=== PATIENT | female | born 1980 | race Caucasian/White ===

== ENCOUNTER → 2023-11-09 07:33 | Outpatient (REF) | payer OTHER, SELFPAY | LOC: HWRAD 07:33 | PROVIDERS: ATTENDING PHYSICIAN Internal Medicine Transplant Hepatology; FAMILY PHYSICIAN Internal Medicine | DX: R76.8 Other specified abnormal immunological findings in serum (principal) | CPT/HCPCS: 76700 ==

== ENCOUNTER → 2023-12-29 08:25 | Outpatient (REF) | payer OTHER, SELFPAY | LOC: HWWDC 08:25 | PROVIDERS: ATTENDING PHYSICIAN Internal Medicine | DX: Z12.31 Encounter for screening mammogram for malignant neoplasm of breast (principal) | CPT/HCPCS: 77063; 77067 ==

== ENCOUNTER 2024-08-18 21:07 | Observation (INO) | payer OTHER, SELFPAY ==
[2024-08-18] VITALS (12 sets, daily range): BP systolic 110–150; BP diastolic 73–95; BMI 25.4
[2024-08-18 11:02] LABS: % Basophils 1.3 % (0-2); % Eosinophils 1.5 % (0-6); % Immature Granulocytes 0.2 % (0-0.5); % Lymphocytes 39.2 % (20.5-51.1); % Monocytes 9.6 % (1.7-9.3); % Neutrophils 48.2 % (42.2-75.2); Absolute Basophils 0.1 10^3/uL (0-0.2); Absolute Eosinophils 0.1 10^3/uL (0-0.7); Absolute Lymphocytes 1.9 10^3/uL (1.2-3.4); Absolute Monocytes 0.5 10^3/uL (0.1-0.6); Absolute Neutrophils 2.3 10^3/uL (1.4-6.5); Hematocrit 40.4 % (37.0-47.0); Hemoglobin 14.1 g/dL (12.0-16.0); Mean Corp Hgb Conc. 34.9 g/dL (33.0-37.0); Mean Corpuscular Hgb 30.8 pg (27.0-31.0); Mean Corpuscular Volume 88.2 fL (81.0-99.0); Mean Platelet Volume 9.8 fL (7.4-10.4); Nucleated Red Blood Cells % 0 %; Platelet Count 229 10^3/uL (130-400); Red Blood Cell Count 4.58 10^6/uL (4.20-5.40); Red Cell Dist. Width 11.8 % (11.5-14.5); White Blood Cell Count 4.8 10^3/uL (4.8-10.8)
--- NOTE | 2024-08-18 11:09 | ED.GENMED ---
History of Present Illness
<Bran Dean, DO - Last Filed: 08/18/24 15:21>
General
Chief Complaint: Abdominal Pain
Source: patient, spouse and ambulance crew
Exam Limitations: none
Time Seen by Provider: 08/18/24 10:59
Nursing documentation reviewed up to this point in time: agreed with
History of Present Illness
History of Present Illness:
44-year-old female presents emergency department due to sudden onset right lower pain and vomiting. No aggravating relieving factors.
Past History
<Bran Dean, DO - Last Filed: 08/18/24 15:21>
Past History
ED Past Medical History: Other (anemia)
ED Past Surgical History: , Gynecological (Partial hysterectomy, tubal ligation), Tonsilectomy and Other (Facial reconstruction)
Social History
Tobacco: Non-smoker
Alcohol: None
Drug: None
Personal:
Living: with family
Review of Systems
<Bran Dean, DO - Last Filed: 08/18/24 15:21>
Review of Systems
Allergies reviewed?: Yes
All Other Systems: Not applicable
Constitutional: Reports no symptoms
EENT: Reports no symptoms
Respiratory: Reports no symptoms
Cardiac: Reports no symptoms
ABD/GI: Reports abdominal pain, nausea and vomiting
: Reports flank pain
Musculoskeletal: Reports no symptoms
Skin: Reports no symptoms
Neurological: Reports no symptoms
Endocrine: Reports no symptoms
Hematologic/Lymphatic: Reports no symptoms
Psychiatric: Reports no symptoms
Phy Exam
<Bran Dean, DO - Last Filed: 08/18/24 15:21>
Physical Exam
Physical Exam:
Physical Exam
General: Appears uncomfortable, afebrile
Neck: supple. no meningeal signs. normal posterior pharynx
Heart: s1/s2 regular rate and rhythm, no murmur. equal radial
pulses.
HEENT: Pupils equal round reactive to light, EOMI
Lungs: no acute respiratory distress. clear bilaterally
Abdomen: normal bowel sounds. not tender. no CVAT
Neuro: alert and oriented. no focal neurological deficits cranial nerves II through XII intact
Skin: no rash
Psychiatric: well kept. interactive and cooperative
Extremities: no edema. no calf tenderness. negative homans. good distal pulses
Course
<Bran Dean, DO - Last Filed: 08/18/24 15:21>
Orders/Labs/Results
Orders:
Orders
08/18/24 10:46
IV Insert/Care/Rem.- Treatment PRN
08/18/24 10:48
Complete Blood Count/With Diff Urgent
Comprehensive Metabolic Panel Urgent
Lipase Urgent
08/18/24 11:06
Ketorolac [Toradol] 15 mg IV NOW STA
Ondansetron Injectable [Zofran] 4 mg IV NOW STA
08/18/24 11:07
Lactated Ringers [Lr] 1,000 ml IV BOLUS
08/18/24 11:08
CT Abd/pel Without Iv Or Oral Urgent
Comment:
Reason For Exam: right flank pain
08/18/24 12:34
Ketorolac [Toradol] 15 mg .ROUTE .STK-MED ONE
Ketorolac [Toradol] 15 mg IV NOW STA
08/18/24 13:14
HYDROmorphone [Dilaudid] 0.5 mg IV NOW STA
08/18/24 13:20
Ondansetron Injectable [Zofran] 4 mg .ROUTE .STK-MED ONE
08/18/24 13:21
Ondansetron Injectable [Zofran] 4 mg IV NOW STA
08/18/24 13:28
Urinalysis Reflex To Culture Urgent
Date Specimen was Collected: 08/18/24
Time Specimen was Collected: 10:46
08/18/24 13:48
Ketorolac [Toradol] 15 mg IV NOW STA
08/18/24 13:53
US Pelvis W Transvag Combined Urgent
Comment:
Reason For Exam: right pelvic pain, prior partial hysterectomy
08/18/24 14:02
Lactated Ringers [Lr] 1,000 ml IV BOLUS
08/18/24 14:07
Metoclopramide [Reglan] 10 mg .ROUTE .STK-MED ONE
Morphine Sulfate 2 mg .ROUTE .STK-MED ONE
08/18/24 14:12
Metoclopramide [Reglan] 10 mg IV NOW STA
Morphine Sulfate 2 mg IV NOW STA
08/18/24 18:02
HYDROmorphone [Dilaudid] 0.5 mg IV NOW STA
08/18/24 20:45
Admit/Transfer Patient As Directed
Co-Sign Provider:
Level of Care: Observation services
Assign to:: Medical/Surgical
Physician / Group: htay
Diagnosis: Sudden onset of Rt Lower abdominal pain of uncertain origin
Reason for Hospitalization: Sudden onset of Rt Lower abdominal pain of uncertain origin
Reason for Overnight Stay: Other
Other Reason for Overnight Stay: Sudden onset of Rt Lower abdominal pain of uncertain origin
08/18/24 20:47
Code Status As Directed
Resuscitation Status: Full Code
Abnormal Lab Results
08/18/24
10:48
Monocytes % 9.6 H %
(1.7-9.3)
08/18/24 10:48
08/18/24 10:48
Vital Signs
Initial and Last Documented VS:
Initial Vital Signs
BP
128/95
08/18/24 10:48
Last Documented Vital Signs
Pulse Resp BP Pulse Ox
63 13 143/83 98
08/18/24 19:30 08/18/24 19:30 08/18/24 19:00 08/18/24 19:30
Burkelt;Ramon Alicia DO - Last Filed: 08/18/24 22:23>
Orders/Labs/Results
Orders:
Orders
08/18/24 10:46
IV Insert/Care/Rem.- Treatment PRN
08/18/24 10:48
Complete Blood Count/With Diff Urgent
Comprehensive Metabolic Panel Urgent
Lipase Urgent
08/18/24 11:06
Ketorolac [Toradol] 15 mg IV NOW STA
Ondansetron Injectable [Zofran] 4 mg IV NOW STA
08/18/24 11:07
Lactated Ringers [Lr] 1,000 ml IV BOLUS
08/18/24 11:08
CT Abd/pel Without Iv Or Oral Urgent
Comment:
Reason For Exam: right flank pain
08/18/24 12:34
Ketorolac [Toradol] 15 mg .ROUTE .STK-MED ONE
Ketorolac [Toradol] 15 mg IV NOW STA
08/18/24 13:14
HYDROmorphone [Dilaudid] 0.5 mg IV NOW STA
08/18/24 13:20
Ondansetron Injectable [Zofran] 4 mg .ROUTE .STK-MED ONE
08/18/24 13:21
Ondansetron Injectable [Zofran] 4 mg IV NOW STA
08/18/24 13:28
Urinalysis Reflex To Culture Urgent
Date Specimen was Collected: 08/18/24
Time Specimen was Collected: 10:46
08/18/24 13:48
Ketorolac [Toradol] 15 mg IV NOW STA
08/18/24 13:53
US Pelvis W Transvag Combined Urgent
Comment:
Reason For Exam: right pelvic pain, prior partial hysterectomy
08/18/24 14:02
Lactated Ringers [Lr] 1,000 ml IV BOLUS
08/18/24 14:07
Metoclopramide [Reglan] 10 mg .ROUTE .STK-MED ONE
Morphine Sulfate 2 mg .ROUTE .STK-MED ONE
08/18/24 14:12
Metoclopramide [Reglan] 10 mg IV NOW STA
Morphine Sulfate 2 mg IV NOW STA
08/18/24 18:02
HYDROmorphone [Dilaudid] 0.5 mg IV NOW STA
08/18/24 20:45
Admit/Transfer Patient As Directed
Co-Sign Provider:
Level of Care: Observation services
Assign to:: Medical/Surgical
Physician / Group: htay
Diagnosis: Sudden onset of Rt Lower abdominal pain of uncertain origin
Reason for Hospitalization: Sudden onset of Rt Lower abdominal pain of uncertain origin
Reason for Overnight Stay: Other
Other Reason for Overnight Stay: Sudden onset of Rt Lower abdominal pain of uncertain origin
08/18/24 20:47
Code Status As Directed
Resuscitation Status: Full Code
Abnormal Lab Results
08/18/24
10:48
Monocytes % 9.6 H %
(1.7-9.3)
08/18/24 10:48
08/18/24 10:48
Vital Signs
Initial and Last Documented VS:
Initial Vital Signs
BP
128/95
08/18/24 10:48
Last Documented Vital Signs
Pulse Resp BP Pulse Ox
63 13 143/83 98
08/18/24 19:30 08/18/24 19:30 08/18/24 19:00 08/18/24 19:30
<Bran Dean, DO - Last Filed: 08/18/24 15:21>
MDM/Problems Addressed
Differential Diagnosis Includes:
Kidney stone, appendicitis, ADR from GLP-1
MDM/Problems Addressed:
44-year-old female with nausea vomiting abdominal pain. No signs of appendicitis or UTI. Possible reaction to GLP-1. Ultrasound of pelvis pending. Reassess, and discharge if patient feels comfortable, versus admitting for further pain control.
<DO Jonathan Luke Filed: 08/18/24 15:21>
*Radiology
Radiology exam reviewed: radiology read reviewed (CT abdomen pelvis no acute findings)
*Pulse Oximetry
Patient hypoxic: no
<DO Jonathan Soto Filed: 08/18/24 22:23>
*Critical Care Note
Total Time (30-74mins, 75-104mins- exclusive of procedures): Not Applicable
<DO Jonathan Soto Filed: 08/18/24 22:23>
Update Note
Update Note:
Patient received in signout at 2 PM. Plan was to reeval patient after ultrasound.
Patient presented to the emergency room with significant right lower quadrant abdominal pain. She also has nausea and vomiting.
CT scan without IV or p.o. contrast showed no significant pathology.
Pelvic ultrasound is essentially normal. No evidence of torsion. Good flow bilaterally.
I did reevaluate the patient after the ultrasound report came back. She continues to have significant right lower quadrant abdominal pain. She is somewhat tender to palpation in the right lower quadrant. She is tearful. Patient's labs are
universally normal.
I personally reviewed the patient's CT scan and did communicate with Dr. Loya from radiology just to make sure there is nothing to explain her abdominal pain. Upon further review there is a question of perhaps a finding to suggest gonadal vein
thrombosis. Patient's symptoms persist he recommends CT with IV contrast. Patient has required multiple doses of analgesia. Will hospitalize the patient for continued pain control and further workup as an inpatient.
ED Attending Note
<DO Jonathan Luke Filed: 08/18/24 15:21>
-
Portions of this chart may have been created with voice recognition software.� Occasional wrong word or��sound alike� substitutions may have occurred due to the inherent limitations of voice recognition software.
Discharge Plan
Departure
Patient Disposition: Admit
Date of Disposition: 08/18/24
Time of Disposition: 20:11
Presentation/result/management discussed w/ accepting MD/DO: Hospitalist
Condition: Fair
Discharge Problem:
Intractable abdominal pain
Interventions
Interventions:
*Risk Screen - Suicide Last Done: 08/18/24 11:09
*General Assessment Last Done: 08/18/24 11:09
*Neglect/Abuse Screening Last Done: 08/18/24 11:09
*ED- Fall Risk Assessment Last Done: 08/18/24 11:09
FZ-Svkhwj-Vxogmsmfyn Assessment Last Done: 08/18/24 18:29
[2024-08-18] MEDS: TORADOL 15 MG IV ×3 (11:18→13:49)
[2024-08-18] MEDS: LR 1000 IV ×2 (11:18→14:13)
[2024-08-18] MEDS: ZOFRAN 4 MG IV ×2 (11:18→13:22)
[2024-08-18 11:20] LABS: ALT (SGPT) 15 U/L (0-35); AST (SGOT) 23 U/L (14-36); Albumin 4.2 g/dl (3.5-5.0); Alkaline Phosphatase 38 U/L (38-126); Blood Urea Nitrogen 9 mg/dl (7-17); Calcium 9.7 mg/dl (8.4-10.2); Carbon Dioxide 30 mmol/L (22-30); Chloride 105 mmol/L (98-107); Glucose 82 mg/dl (70-99); Lipase 143 U/L (23-300); Potassium 4.5 mmol/L (3.5-5.1); Sodium 142 mmol/L (135-145); Total Bilirubin 0.7 mg/dl (0.2-1.3); Total Protein 6.5 g/dl (6.3-8.2); eGFR > 60.00
[2024-08-18] MEDS: DILAUDID 0.5 MG IV ×2 (13:17→18:04)
[2024-08-18 13:36] LABS: Urine Albumin Negative (Neg - Trace); Urine Bilirubin Negative (Negative); Urine Character Clear (Clear); Urine Color Yellow; Urine Glucose Negative (Negative); Urine Ketone Negative (Negative); Urine Leukocyte Negative (Negative); Urine Nitrite Negative (Negative); Urine Occult Blood Negative (Negative); Urine Specific Gravity 1.015 (<1.030); Urine Urobilinogen Negative (Neg - 1+)
[2024-08-18] MEDS: MORPHINE SULFATE 2 MG IV (14:13)
[2024-08-18] MEDS: REGLAN 10 MG IV (14:13)
--- NOTE | 2024-08-18 20:40 | HPS.HSE ---
Family Physician
-
Family Physician: Yesenia Orozco
Chief Complaint
-
abrupt onset of abdominal pain
History of Present Illness
HPI
44F HX Anemia NOS, Partial hysterectomy, tubal ligation, Tonsillectomy seen at ER for
- sudden onset right lower pain and vomiting.
- No aggravating relieving factors.
At ER :
IV Morphine 2 mg x 1
IV Dilaudid 0.5mg x 2
IV Toradol 15mg x 2
IV Zofram 4mg x 2
IV Regaln 10mg x1
LR IV bolus
Medical History
Past Medical History
Past Medical History: Reports Other (not noted )
Past Surgical History: Reports Tonsilectomy and Other (Partial hysterectomy, tubal ligation,)
Social History
Tobacco: Non-smoker
Alcohol: None
Drug: None
Family History
Family History: Not pertinent
Allergies / Home Medications
Allergies reflects when Allergies were last updated in [employer].
Home Medications with original date entered in [employer]
Allergy/Medication List:
Allergies
Allergy/AdvReac Type Severity Reaction Status Date / Time
acetaminophen [From Vicodin] Allergy Nausea/SWEA Verified 04/21/18 16:12
T/DIZZY
[place] [employer] Allergy LIP Verified 04/21/18 16:12
SWELLING/SKIN
ITCHES
hydrocodone [From Vicodin] Allergy Nausea/SWEA Verified 04/21/18 16:12
T/DIZZY
[place] Allergy congestion Uncoded 04/19/18 13:11
Home Medications
cefdinir 300 mg capsule (Omnicef) 300 mg PO BID 5 days #10 caps 03/13/18
diazepam 2 mg tablet 2 mg PO TIDPRN PRN chest tightness 03/13/18
hydrocodone 5 mg-acetaminophen 325 mg tablet 1 tab PO Q4HPRN PRN mild reason 03/13/18
hydrocodone 5 mg-acetaminophen 325 mg tablet 2 tab PO Q4HPRN PRN moderate to severe pain 03/13/18
Review of Systems
-
Constitutional: Reports No Symptoms
EENT: Reports No Symptoms
Respiratory: Reports No Symptoms
Cardiac: Reports No Symptoms
Abdomen/GI: Reports See HPI and Abdominal Pain
: Reports No Symptoms
Musculoskeletal: Reports No Symptoms
Skin: Reports No Symptoms
Neurological: Reports No Symptoms
Endocrine: Reports No Symptoms
Hematologic/Lymphatic: Reports No Symptoms
Psych: Reports No Symptoms
Physical Exam
Vital Signs
Vital Signs
Pulse Resp BP Pulse Ox
63 13 143/83 98
08/18/24 19:30 08/18/24 19:30 08/18/24 19:00 08/18/24 19:30
Physical Exam
General: Well Developed, Well Nourished and No Apparent Distress
HEENT: NormoCephalic, Moist mucous membranes and Atraumatic
Respiratory: Clear
Cardiac: S1/S2 and Regular Rhythm; No Murmur or Rub
GI: Soft and Non Distended
Rectal: Deferred by Provider
Musculoskeletal: No Clubbing, No Cyanosis and No Edema
Skin: No Rash
Neuro: Nonfocal/grossly intact
Laboratory Results
-
08/18/24 10:48
08/18/24 10:48
Laboratory Results
Total Bilirubin 0.7 mg/dl (0.2-1.3) 08/18/24 10:48
AST 23 U/L (14-36) 08/18/24 10:48
ALT 15 U/L (0-35) 08/18/24 10:48
Alkaline Phosphatase 38 U/L (38-126) 08/18/24 10:48
Lipase 143 U/L (23-300) 08/18/24 10:48
Data Reviewed
-
CT Scan: Report Reviewed by me
Lab Data: Labs Reviewed by me
Impression/Plan
-
08/18/24
10:48 08/18/24
10:49
Pulse 80
Resp Rate 16
Blood pressure 128/95
SaO2 100
Lab
08/18/24 08/18/24
10:48 13:28
WBC 4.8
Hgb 14.1
Plt Count 229
BUN 9
Creatinine 0.7
eGFR > 60.00
AST 23
ALT 15
Alkaline Phosphatase 38
Lipase 143
Urine Clarity Clear
Urine Ketones Negative
Ur Occult Blood Reflex Negative
Urine Nitrite (Reflex) Negative
Leukocyte Esterase Rfl Negative
US Pelvis W Trans vagina Combined
- Prior partial hysterectomy.
- The ovaries were well visualized on this examination.
CT AP l Without Iv Or Oral
- No hydronephrosis.
- There is no definite renal or ureteral calculi.
- Numerous pelvic phleboliths.
- Trace free fluid in the pelvis which is likely physiologic.
- Normal appendix.
- Minimal scattered colonic diverticulosis.
ASSESSMENT & PLAN
Pending Rx reconciliation
Sudden onset of Rt Lower abdominal pain of uncertain origin but somewhat improved with multple dose of Toradol, Morphine and Dilaudid
- unremarkable CT
- unremarkable combined TV & US pelvis
- unremarkable labs
- Regular diet and empiric IVF
- PRN Narcotic pain control
- Anti emetics PRN
- ER reviewed CT AP with radiologist for persistent pain., only thing was perhaps a suggestion of gonadal vein thrombosis.
- CT with IV contrast to further evaluate for that if she does not improve: He suggests CT with IV contrast to further evaluate for that if she does not improve.
DVT Px: SQH
Full code
OBS MS
[2024-08-18] MEDS: NSS 1000 IV (22:57)
[2024-08-19 06:34] LABS: Hematocrit 34.8 % (37.0-47.0); Hemoglobin 12.9 g/dL (12.0-16.0); Mean Corp Hgb Conc. 37.1 g/dL (33.0-37.0); Mean Corpuscular Hgb 32.1 pg (27.0-31.0); Mean Corpuscular Volume 86.6 fL (81.0-99.0); Mean Platelet Volume 10.1 fL (7.4-10.4); Platelet Count 189 10^3/uL (130-400); Red Blood Cell Count 4.02 10^6/uL (4.20-5.40); Red Cell Dist. Width 11.7 % (11.5-14.5); White Blood Cell Count 7.9 10^3/uL (4.8-10.8)
[2024-08-19 07:06] LABS: ALT (SGPT) 25 U/L (0-35); AST (SGOT) 27 U/L (14-36); Albumin 3.1 g/dl (3.5-5.0); Alkaline Phosphatase 38 U/L (38-126); Blood Urea Nitrogen 6 mg/dl (7-17); Calcium 9.1 mg/dl (8.4-10.2); Carbon Dioxide 25 mmol/L (22-30); Chloride 109 mmol/L (98-107); Estimated Creatinine Clearance 118 ml/min; Glucose 83 mg/dl (70-99); Potassium 3.9 mmol/L (3.5-5.1); Sodium 139 mmol/L (135-145); Total Bilirubin 0.9 mg/dl (0.2-1.3); eGFR > 60.00
[2024-08-19 07:55] VITALS: BP 109/68
[2024-08-19] MEDS: HEPARIN SC (08:02)
[2024-08-19] MEDS: OMNIPAQUE 50 ML PO (09:48)
--- NOTE | 2024-08-19 11:35 | CM ---
Alert awake oriented pt who lives with Augusto in a 2 story home with 3 steps and 15 steps to bed/bathroom.She is independent in driving and all ADLs.No adaptive devices.Observation letter given explained signed on chart.
No VN hx No Snf hx
Pharmacy [facility]
PCP Dr Glez
PLAN home no needs
--- NOTE | 2024-08-19 13:18 | W.PN.HOSP.TC ---
Today's Communication/Plan
-
await repeat CT scan from today
possible d/c?
Assessment / Plan
Assessment / Plan
pt is a 44 year old female
Sudden onset of Rt Lower abdominal pain of uncertain origin but now improved --CT scan in ED unremarkable --repeat CT scan with contrast done today pending--transvaginal/pelvic US--labs WNL--if tolerates diet, d/c?
DVT proph
code status --FULL CODE
Anticipated Discharge: Within 24 hours
Subjective/Interval History
-
Date of Service: August 19, 2024
pt feeling better
Objective Data
-
Labs:
Laboratory Results
08/19/24
06:06
WBC 7.9
Hgb 12.9
Hct 34.8 L
Plt Count 189
Sodium 139
Potassium 3.9
Chloride 109 H
Carbon Dioxide 25
BUN 6 L
Creatinine 0.6
Glucose 83
Calcium 9.1
Total Bilirubin 0.9
AST 27
ALT 25
Alkaline Phosphatase 38
Vital Signs:
max temp for 24 hours
03/14/18
07:59
Temp 99.3 F
Vital Signs
Temp Pulse Resp BP Pulse Ox
98.5 F 82 16 109/68 96
08/19/24 07:55 08/19/24 07:55 08/19/24 07:55 08/19/24 07:55 08/19/24 10:28
I&O
08/18/24 08/19/24 08/20/24
06:59 06:59 06:59
Intake Total 500 / 500
Balance 500 / 500
Review of Systems
-
All other systems: Reviewed and negative
Physical Exam
-
General: Well Developed, Well Nourished and No Apparent Distress
HEENT: Normocephalic and Atraumatic
Respiratory: Clear to Auscultation; Negative Wheezes or Rhonchi
Cardiac: Regular Rhythm and S1/S2; Negative Murmur
GI: Soft, Nontender, Nondistended and Normal Bowel Sounds
Musculoskeletal: No Clubbing, No Cyanosis and No Edema
Neuro: Awake
Psych: Calm
--- NOTE | 2024-08-19 13:54 | W.PN.UPDATE ---
Update Note
Progress Note Update
Discussed CAT scan finding with patient and need for MRI for further clarification. Patient is agreeable to stay and obtain the MRI. Spoke with radiology and will obtain MRI with and without contrast.
[2024-08-19] MEDS: NSS IV (14:15)
--- NOTE | 2024-08-19 15:21 | CHAP ---
Vikki said she's feeling okay, but 'it's not easy being in the hospital.' Emotional and spiritual support provided.
[2024-08-19 15:55] VITALS: BP 115/80
[2024-08-19] MEDS: COLACE 100 MG PO (16:21)
[2024-08-19] MEDS: TYLENOL 650 MG PO (16:21)
[2024-08-19] MEDS: HEPARIN 5000 UNITS SC (19:18)
[2024-08-19 23:50] VITALS: BP 108/68
[2024-08-20 06:18] LABS: Hematocrit 35.6 % (37.0-47.0); Hemoglobin 12.4 g/dL (12.0-16.0); Mean Corp Hgb Conc. 34.8 g/dL (33.0-37.0); Mean Corpuscular Hgb 30.8 pg (27.0-31.0); Mean Corpuscular Volume 88.3 fL (81.0-99.0); Mean Platelet Volume 9.9 fL (7.4-10.4); Platelet Count 168 10^3/uL (130-400); Red Blood Cell Count 4.03 10^6/uL (4.20-5.40); Red Cell Dist. Width 11.9 % (11.5-14.5); White Blood Cell Count 4.8 10^3/uL (4.8-10.8)
[2024-08-20 06:47] LABS: Blood Urea Nitrogen 7 mg/dl (7-17); Calcium 8.9 mg/dl (8.4-10.2); Carbon Dioxide 25 mmol/L (22-30); Chloride 109 mmol/L (98-107); Estimated Creatinine Clearance 118 ml/min; Glucose 84 mg/dl (70-99); Magnesium 1.8 mg/dl (1.6-2.3); Potassium 4.4 mmol/L (3.5-5.1); Sodium 139 mmol/L (135-145); eGFR > 60.00
[2024-08-20 07:30] VITALS: BP 113/74
[2024-08-20] MEDS: HEPARIN 5000 UNITS SC (08:38)
--- NOTE | 2024-08-20 12:45 | W.PN.HOSP.TC ---
Addendum entered and electronically signed by Ksenia Vallecillo MD 08/21/24 07:50:
total DC time 40 min
Addendum entered and electronically signed by Ksenia Vallecillo MD 08/20/24 13:28:
I saw and evaluated the patient. I reviewed the resident�s note and agree with findings and plan as documented in the resident�s note.
A/P:
# Sudden onset of Rt Lower abdominal pain of uncertain origin but now resolved
Admission CT AP noted soft tissue prominence in the right true pelvis possibly mass of other origin
Transvaginal ultrasound unrevealing: Prior partial hysterectomy. The ovaries were well visualized on this examination.
Pending MRI to evaluate pelvic mass
Original Note:
Today's Communication/Plan
-
- Awaiting MRI
Assessment / Plan
Assessment / Plan
44-year-old female with past medical history of anemia came in for sudden right lower quadrant pain with nausea and vomiting. No aggravating or relieving factors.
Discharge pending MRI
Sudden onset of right lower abdominal pain of uncertain origin:
-Today no abdominal pain and completely relieved, nausea, vomiting, diarrhea, headache, dizziness, fever, chills
-Vitals are stable and patient is afebrile
- Currently awaiting MRI
- Recent abdominal pelvis CT showed soft tissue prominence in the right true pelvis possibly mass of other origin needs to be evaluated by MRI, descending colon and sigmoid diverticulosis, cannot tiny gallstones and or sludge
- Continue patient on Senokot -s as needed, MiraLAX as needed, Dulcolax, Dilaudid for pain as needed, Tylenol for pain as needed, Colace as needed
- Continue on gluten-free diet
DVT prophylaxis-heparin
CODE STATUS full code
Anticipated Discharge: Within 24 hours
Subjective/Interval History
-
Date of Service: August 20, 2024
No acute medical problems
Objective Data
-
Labs:
Laboratory Results
08/20/24
05:38
WBC 4.8
Hgb 12.4
Hct 35.6 L
Plt Count 168
Sodium 139
Potassium 4.4
Chloride 109 H
Carbon Dioxide 25
BUN 7
Creatinine 0.6
Glucose 84
Calcium 8.9
Vital Signs:
Vital Signs
Temp Pulse Resp BP Pulse Ox
98.6 F 70 18 113/74 97
08/20/24 07:30 08/20/24 07:30 08/20/24 07:30 08/20/24 07:30 08/20/24 08:50
I&O
08/19/24 08/20/24 08/21/24
06:59 06:59 06:59
Intake Total 500 / 500 1200 / 1200
Balance 500 / 500 1200 / 1200
Review of Systems
-
All other systems: Reviewed and negative
Physical Exam
-
General: Well Developed, Well Nourished and No Apparent Distress
HEENT: Normocephalic and Atraumatic
Respiratory: Clear to Auscultation; Negative Wheezes or Rhonchi
Cardiac: Regular Rhythm and S1/S2; Negative Murmur
GI: Soft, Nontender, Nondistended and Normal Bowel Sounds
Musculoskeletal: No Clubbing, No Cyanosis and No Edema
Neuro: Awake
Psych: Calm
Data Reviewed
-
CT Scan: Report Reviewed by me and Discussed with Physician
Labs: Labs Reviewed by me and Discussed with Physician
[2024-08-20 15:28] VITALS: BP 118/80
--- NOTE | 2024-08-20 17:32 | W.DCSUMMARY ---
Documented by User: Carlyle Muller MD, Resident 08/20/24 17:43
Discharge Summary
Discharge Data
Date of Admission: 08/18/24
Date of Discharge: 08/20/24
-
Pending Results: No
Hospital Course
Discharging Physician : Dr. Ksenia Vallecillo and Dr. Carlyle Muller
Disposition : Home
Primary care physician : Marce Cunningham MD
Principal Discharge diagnosis : Sudden onset of right lower quadrant pain
Chronic Discharge diagnosis : Graves Disease, Anemia
Hospital Course : 44-year-old female with past medical history of anemia, graves disease came in for sudden right lower quadrant pain with nausea and vomiting. No aggravating or relieving factors.
Problem #1: Sudden onset of right lower quadrant pain of uncertain origin:On admission labs were normal, pelvic transvaginal ultrasound normal, CT and MRI are normal . Patients pain was stabilized on as needed Dilaudid. Today she is stable to be
discharged as her vitals are stable and she is afebrile with no nausea, vomiting, abdominal pain, diarrhea.
Important imaging findings :
Abdominal/pelvic 08/18/24:
No hydronephrosis. There is no definite renal or ureteral calculi. Numerous pelvic phleboliths.
Trace free fluid in the pelvis which is likely physiologic.
Normal appendix. Minimal scattered colonic diverticulosis.
Pelvic/transvaginal ultrasound 08/18/24:
IMPRESSION:
Prior partial hysterectomy.
The ovaries were well visualized on this examination.
Abdominal/pelvic CT:
IMPRESSION:
Elongated heterogeneous soft tissue prominence without oral contrast opacification within the soft tissues of the right true pelvis likely not intrinsic to small bowel, possibly a mass of other origin. Recommend MRI of the pelvis for more complete
evaluation. Slightly increased small volume free fluid in the right dependent true pelvis since recent prior CT.
Descending colon and sigmoid diverticulosis limited without oral contrast opacification and with marked paucity of intraabdominal/pelvic fat.
Cannot exclude tiny gallstones and/or sludge. Consider abdominal ultrasound for more complete evaluation.
Pelvis MRI 08/20/24:
IMPRESSION:
Soft tissue prominence in the right hemipelvis on the previous CT appears to correspond to a normal-appearing right ovary. No clear MRI evidence for a pelvic mass or other acute finding in the pelvis
Procedure findings :
Discharge Plan
-
Patient Disposition: Home (Routine Discharge)
Discharge Diagnosis/Procedures: Resolved sudden onset of right lower abdominal pain of uncertain origin
Condition: Good
Diet: Other diet
Activity: As tolerated
Driving Restrictions: As prior to admission
Bathing Restrictions: None
Referrals:
Marce Cunningham MD, Resident [[facility] Resident Year1] - in less than 1 week
Prescriptions:
Continued
Fish Oil
magnesium oxide-Mg AA chelate
B12 5,000-100 mcg Lozenge
SUBLINGUAL
Multi Vitamin
1 DAILY
Discontinued
azithromycin
Rx Instructions:
'pulse dose azithromycin'- only takes once daily tuesday and tuesday
Discharge Orders:
Discharge Patient (As Directed); Ordered 08/20/24
Ordered By: Carlyle Muller
Discharge Date and Time
Discharge Date/Time: 08/20/24 18:11
Print Language: BULGARIAN

Documented by User: Ksenia Vallecillo MD 08/21/24 07:33
Discharge Summary
Discharge Data
Date of Admission: 08/18/24
Date of Discharge: 08/20/24
Hospital Course
Discharging Physician : Dr. Ksenia Vallecillo and Dr. Carlyle Muller
Disposition : Home
Primary care physician : Marce Cunningham MD
Principal Discharge diagnosis : Sudden onset of right lower quadrant pain (resolved)
Chronic Discharge diagnosis : Graves Disease, Anemia
Hospital Course : 44-year-old female with past medical history of anemia, graves disease; came in for sudden right lower quadrant pain with nausea and vomiting. No aggravating or relieving factors.
Problem #1: Sudden onset of right lower quadrant pain of uncertain origin which resolved on its own. Her pelvic transvaginal ultrasound was normal, CT AP showed a soft tissues mass and MRI confirmed it to be normal appearing right ovary. Her pain
resolved and she was discharged home.
Important imaging findings :
Abdominal/pelvic 08/18/24:
No hydronephrosis. There is no definite renal or ureteral calculi. Numerous pelvic phleboliths.
Trace free fluid in the pelvis which is likely physiologic.
Normal appendix. Minimal scattered colonic diverticulosis.
Pelvic/transvaginal ultrasound 08/18/24:
Prior partial hysterectomy.
The ovaries were well visualized on this examination.
Abdominal/pelvic CT:
Elongated heterogeneous soft tissue prominence without oral contrast opacification within the soft tissues of the right true pelvis likely not intrinsic to small bowel, possibly a mass of other origin. Recommend MRI of the pelvis for more complete
evaluation. Slightly increased small volume free fluid in the right dependent true pelvis since recent prior CT.
Descending colon and sigmoid diverticulosis limited without oral contrast opacification and with marked paucity of intraabdominal/pelvic fat.
Cannot exclude tiny gallstones and/or sludge. Consider abdominal ultrasound for more complete evaluation.
Pelvis MRI 08/20/24:
Soft tissue prominence in the right hemipelvis on the previous CT appears to correspond to a normal-appearing right ovary. No clear MRI evidence for a pelvic mass or other acute finding in the pelvis
Discharge Plan
-
Patient Disposition: Home (Routine Discharge)
Discharge Diagnosis/Procedures: Resolved sudden onset of right lower abdominal pain of uncertain origin
Condition: Good
Diet: Other diet
Activity: As tolerated
Driving Restrictions: As prior to admission
Bathing Restrictions: None
Referrals:
Marce Cunningham MD, Resident [[facility] Resident Year1] - in less than 1 week
Prescriptions:
Continued
Fish Oil
magnesium oxide-Mg AA chelate
B12 5,000-100 mcg Lozenge
SUBLINGUAL
Multi Vitamin
1 DAILY
Discontinued
azithromycin
Rx Instructions:
'pulse dose azithromycin'- only takes once daily tuesday and tuesday
Discharge Orders:
Discharge Patient (As Directed); Ordered 08/20/24
Ordered By: Carlyle Muller
Discharge Date and Time
Discharge Date/Time: 08/20/24 18:11
Print Language: BULGARIAN
== END 2024-08-20 18:11 | disposition home or self-care (01) ==
LOC: 4 EAST ACU 21:07
PROVIDERS: Internal Medicine; ADMITTING PHYSICIAN Internal Medicine; ATTENDING PHYSICIAN Internal Medicine; EMERGENCY PHYSICIAN Emergency Medicine; FAMILY PHYSICIAN Internal Medicine
DX: R10.9 Unspecified abdominal pain (principal); R11.2 Nausea with vomiting, unspecified; D64.9 Anemia, unspecified; R10.2 Pelvic and perineal pain; K57.30 Diverticulosis of large intestine without perforation or abscess without bleeding; E05.00 Thyrotoxicosis with diffuse goiter without thyrotoxic crisis or storm; Z88.6 Allergy status to analgesic agent; Z88.5 Allergy status to narcotic agent; Z98.51 Tubal ligation status; Z90.711 Acquired absence of uterus with remaining cervical stump; Z91.018 Allergy to other foods
CPT/HCPCS: 72197; 74176; 74177; 76830; 76856; 80048; 80053; 81003; 83690; 83735; 85025; 85027; 96361; 96374; 96375; 96376; 99285; A9575; G0378; Q9967

== ENCOUNTER → 2025-01-21 15:28 | Outpatient (REF) | payer OTHER, SELFPAY | LOC: HWWDC 15:28 | DX: Z12.31 Encounter for screening mammogram for malignant neoplasm of breast (principal) | CPT/HCPCS: 77063; 77067 ==